=== PATIENT | female | born 1965 | race Caucasian/White ===

== ENCOUNTER → 2019-06-06 | Outpatient (CLI) | payer BC ==
[2019-06-06 13:07] VITALS: BP 124/79; PULSE 76; RESP 16; TEMP 98.2; BMI 31.4
--- NOTE | 2019-06-06 13:39 | P.GSHP ---
History of Present Illness H&P Date: 06/06/19 Chief Complaint: Nodule right breast Viridiana is a 53-year-old white female who presents with a nodule in her right breast. The nodule has been present for at least 2 years and fluctuates in size. She states that this summer it became enlarged and then she was tr eated with an antibiotic for an infected tooth and the lesion decreased in size. The patient states at this time it is decreased in size. It does become painful and itchy when it increases in size. It was intermittently increased in size several times. The patient has not had any fever or chills. The lesion is superficial close to the skin. Her last mammogram was bilateral one done on 1117 and this was a benign BIRADS 2 she will be due for another mammogram in August 2019. The patient drinks one cup of coffee per day, she does not drink soda. She does not smoke and is not exposed to secondhand smoke. She eats chocolate moderately. She is not taking any hormones. Family history: none Hormonal history: Menarche:15 , breast fed: yes, age at first : 17 menopause: 44 BCP: 10 years hormones: none Past Surgical History: 1. D&C 2. tubal ligation 3. vein stripping Medical History: IBS Social History: smoke: none alcohol: moderate drugs: none - Constitutional Constitutional: Denies chills, Denies fever - EENT Eyes: bilateral blurred vision, denies bulging eye Ears: deny: decreased hearing, tinnitus Ears, nose, mouth and throat: Denies headache, Denies sore throat - Breasts Breasts: bilateral: as per HPI - Cardiovascular Cardiovascular: Denies chest pain, Denies shortness of breath - Respiratory Respiratory: Denies cough, Denies 7 - Gastrointestinal Comment: IBS - Genitourinary (Female) Genitourinary: Denies dysuria, Denies hematuria - Menstruation Menstruation: Reports postmenopausal - Musculoskeletal Musculoskeletal: Denies myalgias - Integumentary Comment: contact dermatitis - Neurological Neurological: Denies numbness, Denies weakness - Psychiatric Psychiatric: Reports anxiety, Denies depression - Endocrine Comment: intentional weight change Endocrine: Reports weight change, Denies fatigue - Hematologic/Lymphatic Comment: none - Allergic/Immunologic Allergic/Immunologic: Reports seasonal allergies Past Medical History History of Any Multi-Drug Resistant Organisms: None Reported Smoking Status: Never smoker Medications and Allergies Home Medications Medication Instructions Recorded Confirmed Type Cetirizine HCl [Zyrtec] 10 mg PO DAILY 06/06/19 06/06/19 History LORazepam [Ativan] 0.5 mg PO HS PRN 06/06/19 06/06/19 History PARoxetine [Paxil] 10 mg PO DAILY 06/06/19 06/06/19 History Allergies Allergy/AdvReac Type Severity Reaction Status Date / Time No Known Allergies Allergy Unverified 06/06/19 13:01 Surgical - Exam Vital Signs Temp Pulse Resp BP Pulse Ox 98.2 F 76 16 124/79 96 06/06/19 13:04 06/06/19 13:04 06/06/19 13:04 06/06/19 13:04 06/06/19 13:04 BMI 31.5 - General well developed, well nourished, no distress - Eyes normal ocular movement - ENT no hearing loss, no congestion - Neck no masses, trachea midline - Respiratory normal respiratory effort, clear to auscultation - Cardiovascular Rhythm: regular Heart Sounds: normal: S1, S2 - Abdomen Abdomen: soft, non tender, no guarding, no rigid, no rebound - Integumentary normal turgor - Neurologic no disoriented, no combative - Musculoskeletal normal gait, normal posture - Psychiatric oriented to time, oriented to person, oriented to place, speech is normal, memory intact breast exam: Right breast: Multi-positional exam no dominant masses or nodules of concern deep in the breast is approximately 1 x 1 cm lesion which is in the upper medial aspect of the breast/chest wall which appears to be consistent with a sebaceous cyst this is the area which the patient is concerned about Right axilla: No adenopathy of concern Left breast: Multi-positional exam no dominant masses or nodules of concern examination does reveal a dark nevus in the left axilla, additionally there is a dark nevus in the left posterior bra line recommend both be excised Left axilla: No adenopathy of concern Results Mammogram results reviewed Assessment and Plan Assessment: Impression: 1. Probable change right breast/chest wall consistent with sebaceous cyst 2. Fibrocystic breast changes 3. Dark nevi on the left chest wall in the axilla and posterior the bra line 4. Irritable bowel syndrome Plan: 1. Excision of cyst in the operating room 2. Excision of nevi in the office 3. Medical management of medical conditions 4. Bilateral mammogram in August 2019 CC: DR. Funk, Dr. Mixon
== END | disposition home or self-care (01) ==
LOC: WWCWWP 12:52
PROVIDERS: ATTEND Surgery
DX: Z53.9 Procedure and treatment not carried out, unspecified reason (principal)

== ENCOUNTER → 2019-08-15 | Outpatient (CLI) | payer BC ==
--- NOTE | 2019-08-15 08:26 | MM ---
Reason for exam: additional evaluation requested from prior study. Last mammogram was performed 1 year ago. History: Patient is postmenopausal. Took hormonal contraceptives for 15 years. Physical Findings: Nurse did not find any significant physical abnormalities on exam. MG 3D Diag Mammo W/Cad NAYA Bilateral CC and MLO view(s) were taken. Prior study comparison: August 14, 2018, bilateral MG 3d screening mammo w/cad. December 01, 2015, bilateral MG screening mammo w CAD. The breast tissue is heterogeneously dense. This may lower the sensitivity of mammography. Stable benign calcifications. There is chronic nodularity in the right breast. No significant new findings when compared with previous films. These results were verbally communicated with the patient and result sheet given to the patient on 08/15/19. ASSESSMENT: Benign, BI-RAD 2 RECOMMENDATION: Routine screening mammogram of both breasts in 1 year.
== END ==
LOC: RADMAMWWP 07:37
PROVIDERS: ATTEND Obstetrics & Gynecology
DX: N63.10 Unspecified lump in the right breast, unspecified quadrant (principal); N63.20 Unspecified lump in the left breast, unspecified quadrant
CPT/HCPCS: 77062; 77066

== ENCOUNTER → 2021-12-13 | Outpatient (CLI) | payer BC ==
--- NOTE | 2021-12-13 10:33 | BD ---
EXAMINATION TYPE: Axial Bone Density DATE OF EXAM: 12/13/2021 COMPARISON: 08/14/2018 CLINICAL HISTORY: Height: 66 IN Weight: 226 LBS RISK FACTORS HISTORY OF: Family History of Osteoporosis: YES MOTHER Active: YES Diet low in dairy products/other sources of calcium: YES Postmenopausal woman: AGE 47 Frequent falls: FALLS DUE TO VERTIGO MEDICATIONS: Additional Medications: CALCIUM, VIT D, PAXIL, EXAM MEASUREMENTS: Bone mineral densitometry was performed using the [employer] System. Bone mineral density as measured about the Lumbar spine is: ----- L1-L4(G/cm2): 0.944 T Score Values are as follows: ----- L2: -2.1 ----- L3: -2.3 ----- L4: -1.7 ----- L1-L4: -2.0 Bone mineral density has: Decreased -4.0% since study of: 08/14/2018 Bone mineral density about the R hip (g/cm2): 0.909 Bone mineral density about the L hip (g/cm2): 0.915 T Score values are as follows: -----R Neck: -0.9 -----L Neck: -0.9 -----R Total: -0.4 -----L Total: -0.8 Bone mineral density has: Decreased -1.0% since study of: 08/14/2018 IMPRESSION: Osteopenia of the lumbar spine. NOTE: T-SCORE=SD OF THE YOUNG ADULT MEAN.
--- NOTE | 2021-12-14 10:50 | MM ---
Reason for exam: screening (asymptomatic). Last mammogram was performed 2 years and 4 months ago. History: Patient is postmenopausal. Took hormonal contraceptives for 15 years. Physical Findings: A clinical breast exam by your physician is recommended on an annual basis and results should be correlated with mammographic findings. MG 3D Screening Mammo W/Cad Bilateral CC and MLO view(s) were taken. XCCL view(s) were taken of the right breast. Prior study comparison: August 15, 2019, bilateral MG 3d diag mammo w/cad NAYA. August 14, 2018, bilateral MG 3d screening mammo w/cad. The breast tissue is heterogeneously dense. This may lower the sensitivity of mammography. There are benign appearing round calcifications bilaterally. There is chronic nodularity in the left breast. There is no discrete abnormality. ASSESSMENT: Benign, BI-RAD 2 RECOMMENDATION: Routine screening mammogram of both breasts in 1 year.
== END | disposition home or self-care (01) ==
LOC: RADMAMWWP 08:23
PROVIDERS: ATTEND Obstetrics & Gynecology
DX: Z12.31 Encounter for screening mammogram for malignant neoplasm of breast (principal); M85.88 Other specified disorders of bone density and structure, other site; Z78.0 Asymptomatic menopausal state
CPT/HCPCS: 77063; 77067; 77080

== ENCOUNTER → 2023-10-19 | Outpatient (CLI) | payer BC ==
[2023-10-19 11:20] LABS: HCT 42.8 % (37.2-46.3); HGB 14.6 g/dL (12.0-15.0); MCH 30.4 pg (27.0-32.0); MCHC 34.1 g/dL (32.0-37.0); MCV 89.2 FL (80.0-97.0); Mean Platelet Volume 10.3 FL (9.5-12.2); NRBC Per 100 WBC 0 X 10*3/uL (0.00-0.01); Platelet Count 209 X 10*3/uL (140-440); RDW 12.9 % (11.5-14.5); WBC 3.41 X 10*3/uL (4.50-10.00)
[2023-10-19 11:37] LABS: ALT 27 U/L (8-44); AST 20 U/L (13-35); Albumin 4.7 g/dL (3.8-4.9); Albumin/Globulin Ratio 1.88 Ratio (1.60-3.17); Alkaline Phosphatase 77 U/L (41-126); BUN/Creat Ratio 24.62 Ratio (12.00-20.00); Blood Urea Nitrogen 19.7 mg/dL (9.0-27.0); Calcium 9.7 mg/dL (8.7-10.3); Carbon Dioxide 24.7 mmol/L (21.6-31.8); Chloride 104 mmol/L (96-109); Chol/HDL Ratio 4.56 Ratio; Globulin 2.5 g/dL (1.6-3.3); Glucose 113 mg/dL (70-110); LDL Cholesterol,Calculated 190.8 mg/dL (0.0-131.0); Potassium 4.3 mmol/L (3.5-5.5); Sodium 141 mmol/L (135-145); Total Bilirubin 0.3 mg/dL (0.3-1.2); Total Protein 7.2 g/dL (6.2-8.2)
--- NOTE | 2023-10-20 20:00 | MM ---
Reason for Exam: Screening (asymptomatic). Last mammogram was performed 1 year(s) and 10 month(s) ago. Patient History: Menarche at age 14. First Full-Term at age 17. Postmenopausal. Patient used Hormonal Contraceptives for 15 years. Risk Values: Ceci 5 year model risk: 0.9%. NCI Lifetime model risk: 5.1%. Prior Study Comparison: 08/14/2018 Bilateral Screening Mammogram, [facility]. 08/15/2019 Bilateral Diagnostic Mammogram, [facility]. 12/13/2021 Bilateral Screening Mammogram, [facility]. Tissue Density: There are scattered fibroglandular densities. Findings: Analyzed By CAD. Chronic nodularity left breast. There is no suspicious group of microcalcifications or new suspicious mass in either breast. Overall Assessment: Benign, BI-RAD 2 Management: Screening Mammogram of both breasts in 1 year. . Patient should continue monthly self-breast exams. A clinical breast exam by your physician is recommended on an annual basis. This exam should not preclude additional follow-up of suspicious palpable abnormalities. Note on Ceci scores and lifetime risk: 1. A Ceci score greater than 3% is considered moderate risk. If this is the case, consider specialist referral to assess eligibility for a risk reducing agent. 2. If overall lifetime risk for the development of breast cancer is 20% or higher, the patient may qualify for future screening with alternating mammogram and breast MRI. Electronically signed and approved by: Nuria Mazariegos M.D. Radiologist
== END | disposition home or self-care (01) ==
LOC: RADMAMWWP 07:13
PROVIDERS: ATTEND Obstetrics & Gynecology
DX: Z00.01 Encounter for general adult medical examination with abnormal findings (principal); Z12.31 Encounter for screening mammogram for malignant neoplasm of breast; Z78.0 Asymptomatic menopausal state
CPT/HCPCS: 77063; 77067; 80053; 80061; 85027

== ENCOUNTER → 2024-10-22 | Outpatient (CLI) | payer BC ==
--- NOTE | 2024-10-22 08:16 | MM ---
Reason for Exam: Screening (asymptomatic). Last screening mammogram was performed 12 month(s) ago. Patient History: Menarche at age 14. First Full-Term at age 17. Postmenopausal. Patient has history of breast feeding. Patient used Hormonal Contraceptives for 15 years. Risk Values: Ceci 5 year model risk: 0.9%. NCI Lifetime model risk: 5.0%. Prior Study Comparison: 08/15/2019 Bilateral Diagnostic Mammogram, [facility]. 12/13/2021 Bilateral Screening Mammogram, [facility]. 10/19/2023 Bilateral MG 3D screening mammo w/cad, [facility]. Tissue Density: There are scattered areas of fibroglandular density. Findings: Analyzed By CAD. Chronic nodularity lateral left breast. Unchanged areas of bilateral asymmetric density. There is no suspicious group of microcalcifications or new suspicious mass in either breast. Overall Assessment: Benign, BI-RAD 2 Management: Screening Mammogram of both breasts in 1 year. . Patient should continue monthly self-breast exams. A clinical breast exam by your physician is recommended on an annual basis. This exam should not preclude additional follow-up of suspicious palpable abnormalities. Note on Ceci scores and lifetime risk: 1. A Ceci score greater than 3% is considered moderate risk. If this is the case, consider specialist referral to assess eligibility for a risk reducing agent. 2. If overall lifetime risk for the development of breast cancer is 20% or higher, the patient may qualify for future screening with alternating mammogram and breast MRI. [facility], , 10/22/2024 8:13 AM. Electronically signed and approved by: Nuria Mazariegos M.D. Radiologist
[2024-10-22 10:49] LABS: HCT 41.7 % (37.2-46.3); HGB 14.2 g/dL (12.0-15.0); MCH 30.6 pg (27.0-32.0); MCHC 34.1 g/dL (32.0-37.0); MCV 89.9 FL (80.0-97.0); Mean Platelet Volume 9.6 FL (9.5-12.2); NRBC Per 100 WBC 0 X 10*3/uL (0.00-0.01); Platelet Count 221 X 10*3/uL (140-440); RBC 4.64 X 10*6/uL (4.10-5.20); RDW 13.2 % (11.5-14.5); WBC 3.87 X 10*3/uL (4.50-10.00)
[2024-10-22 10:53] LABS: Chol/HDL Ratio 3.69 Ratio; LDL Cholesterol,Calculated 165.9 mg/dL (0.0-131.0); VLDL Calculation 19.28 mg/dL (5.00-40.00)
[2024-10-22 10:54] LABS: ALT 25 U/L (8-44); AST 23 U/L (13-35); Albumin 4.7 g/dL (3.8-4.9); Albumin/Globulin Ratio 1.96 Ratio (1.60-3.17); Alkaline Phosphatase 74 U/L (41-126); BUN/Creat Ratio 15.38 Ratio (12.00-20.00); Blood Urea Nitrogen 12.3 mg/dL (9.0-27.0); Calcium 9.4 mg/dL (8.7-10.3); Carbon Dioxide 24.1 mmol/L (21.6-31.8); Chloride 105 mmol/L (96-109); Globulin 2.4 g/dL (1.6-3.3); Glucose 119 mg/dL (70-110); Potassium 4.2 mmol/L (3.5-5.5); Sodium 140 mmol/L (135-145); Total Bilirubin 0.4 mg/dL (0.3-1.2); Total Protein 7.1 g/dL (6.2-8.2)
--- NOTE | 2024-10-22 15:53 | BD ---
EXAMINATION TYPE: Axial Bone Density DATE OF EXAM: 10/22/2024 CLINICAL HISTORY: 58 years old Female. ICD-10 CODE: M85.80 Disorder of bone , Additional History: Height: 65.5 in Weight: 226 lbs FRAX RISK QUESTIONS: Secondary Osteoporosis: 3. Menopause before 45: age 41 RISK FACTORS EXAM MEASUREMENTS: Bone mineral densitometry was performed using the [employer] System. Bone mineral density as measured about the Lumbar spine is: ----- L1-L4(G/cm2): 1.011 T Score Values are as follows: ----- L1: -1.0 ----- L2: -2.0 ----- L3: -1.5 ----- L4: -1.4 ----- L1-L4: -1.4 Z Score Values are as follows: ----- L1: -1.0 ----- L2: -1.9 ----- L3: -1.5 ----- L4: -1.3 ----- L1-L4: -1.4 Bone mineral density has: Increased 7.1% since study of: 12/13/2021 Bone mineral density about the R hip (g/cm2): 0.944 Bone mineral density about the L hip (g/cm2): 0.915 T Score values are as follows: -----R Neck: -1.2 -----L Neck: -1.2 -----R Total: -0.5 -----L Total: -0.7 Z Score values are as follows: -----R Neck: -0.8 -----L Neck: -0.7 -----R Total: -0.4 -----L Total: -0.7 Bone mineral density has: Increased 0.1% since study of: 12/13/2021 FRAX%s: The graph provided illustrates a 6.7% chance for a major osteoporotic fx and a 0.4% chance fo r the hips probability for fx in 10 years time. IMPRESSION: Osteopenia (T Score between -2.5 and -1). There is slightly increased risk of fracture and the patient may be considered for treatment. Re-Screen 2-5 years. NOTE: T-SCORE=SD OF THE YOUNG ADULT MEAN. [facility], , 10/22/2024 3:51 PM
== END | disposition home or self-care (01) ==
LOC: RADMAMWWP 07:09
PROVIDERS: ATTEND Family Medicine
DX: Z12.31 Encounter for screening mammogram for malignant neoplasm of breast (principal); Z00.01 Encounter for general adult medical examination with abnormal findings; Z78.0 Asymptomatic menopausal state; R92.323 Mammographic fibroglandular density, bilateral breasts; N63.20 Unspecified lump in the left breast, unspecified quadrant; M85.89 Other specified disorders of bone density and structure, multiple sites
CPT/HCPCS: 77063; 77067; 77080; 80053; 80061; 85027